=== PATIENT | female | born 1950 | race Caucasian/White ===

== ENCOUNTER 2024-05-19 13:29 | Emergency (ER) | payer MEDICARE, SELFPAY ==
[2024-05-19 13:43] VITALS: BP 111/61; PULSE 72; RESP 16; TEMP 36.4; O2SAT 96
--- NOTE | 2024-05-19 14:00 | ED.URI ---
HPI - URI/Sore Throat General Chief Complaint: Upper Respiratory Infection Stated Complaint: SINUS CONGESTION Time Seen by Provider: 05/19/24 14:00 Source: patient, RN notes reviewed and old records reviewed Mode of arrival: ambulatory Limitations: no limitations History of Present Illness HPI Narrative: 74 year old female who [facility] with complaints of cough with gradually increasing sinus drainage starting last Sunday. Patient reports that she has no fever but has noted more and more nasal congestion over the past few days. Patient reports that she has had pneumonia in the past and is concerned of getting that again.Patient reports that she is coughing up yellow drainage. patient reports that she has taken some Claritin MD elicited complaint: cough, rhinorrhea, nasal congestion, sinus pain and other (headache) Pertinent past history: pneumonia Onset (ago): week(s) (1) Description of mucous: yellow Treatments prior to arrival: other (Claritin) Related Data Home Medications Medication Instructions Recorded Confirmed apixaban 5 mg tablet (Eliquis) 5 mg PO DAILY 05/19/24 05/19/24 atorvastatin 10 mg tablet 10 mg PO DAILY 05/19/24 05/19/24 sotalol 80 mg tablet 80 mg PO DAILY 05/19/24 05/19/24 Allergies Allergy/AdvReac Type Severity Reaction Status Date / Time morphine Allergy Hypotension Verified 05/19/24 13:42 Review of Systems Review of Systems: CONSTITUTIONAL: Denies malaise, chills, sweats, or fever. EYES: Denies visual changes, redness, or discharge. ENT: Reports rhinorrhea, congestion, sinus pain,no otalgia and no sore throat. CARDIOVASCULAR: Denies chest pain, palpitations, or edema. RESPIRATORY: Reports productive cough.? Denies any acute dyspnea GASTROINTESTINAL: Denies abdominal pain, nausea, vomiting, diarrhea SKIN: Denies rash or itching. MUSCULOSKELETAL: Denies myalgia. NEUROLOGIC: Reports headache. All systems reviewed & are unremarkable except as noted in HPI and below PMFSH Past Medical History Medical History (Updated 05/19/24 @ 14:39 by Мария Murphy NP) Atrial fibrillation Breast cancer Pneumonia Surgical History Surgical History (Updated 05/19/24 @ 20:04 by Мария Murphy NP) S/P lumpectomy of breast Social History Social History (Updated 05/19/24 @ 14:39 by TARIQ Good Smoking status: Never smoker Alcohol intake: never Substance use type: does not use Living arrangements: with family Gender identity (if verbalized by the patient): Female Comments At time of signature, agree with nursing past medical, surgical, social and family history. There is no relevant family history pertinent to the presenting complaint Exam Narrative: GENERAL: Well-appearing, well-nourished, and in no acute distress. HEAD: Normocephalic EYES: PERRLA, conjunctivae clear ENT: Nares clear, turbinates edematous and erythematous, clear discharge. Mucous membranes moist. TM pearly lopes with dull light reflex bilaterally; no tragal tenderness. Oropharynx erythematous without lesions. Tonsils not enlarged and without exudate, no drooling, no hoarseness, no trismus, uvula midline. NECK: Supple. No lymphadenopathy CHEST: Scattered wheezing, breath sounds equal.Positive for wheezing,no rhonchi, rales, or stridor. No respiratory distress, speaks in full sentences.productive cough of yellow mucous SAO2 96% on room air HEART: Regular rate and rhythm. No murmur heard. SKIN: Warm, dry, no rash. NEURO: Alert and oriented x3. PSYCH: Normal mood and affect Course Course Emergency Course: Patient is aware of diagnosis, understands and agrees to treatment plan.? Anticipatory guidance given.? Patient agrees to follow-up as directed and is aware of reasons to seek care at the emergency department. Portions of this record may have been created with voice recognition software Level of Care: Express Care Visit Vital Signs Vital signs: V
== END 2024-05-19 14:19 | disposition home or self-care (01) ==
PROVIDERS: Emergency Provider Registered Nurse; PCP Family Medicine
DX: J40 Bronchitis, not specified as acute or chronic (principal); I48.91 Unspecified atrial fibrillation; Z85.3 Personal history of malignant neoplasm of breast; Z79.01 Long term (current) use of anticoagulants
CPT/HCPCS: 99213; G0463